=== PATIENT | male | born 1960 | race Caucasian/White ===

== ENCOUNTER 2016-07-14 10:27 | Day surgery (SDC) | payer OTHER ==
[2016-07-14] VITALS (8 sets, daily range): BP systolic 99–139; BP diastolic 63–92; PULSE 66–75; RESP 6–17; O2SAT 94–99
[~2016-07-14] VITALS: Ht 182.9 cm; Wt 75.5 kg
--- NOTE | 2016-07-14 10:11 | PCM.HPANE ---
Patient Data Date of Service: July 14, 2016 Surgeon Admitting Provider: Attending Provider:Chinyere Jordan MD Primary Care Physician:Karla Al MD Other Provider:Katherine Corcoran Anesthesia Reason for Visit Right Inguinal Hernia Ht/WT & BMI Height (Feet): 6 Height (Inches): 0 Weight (Kilograms): 78.698 Body Mass Index 23.00 Allergies Coded Allergies: No Known Allergies (Verified , 07/13/16) Past Anesthesia History Anesthesia History: Denies:: Anesthesia Reactions, Malignant Hyperthermia Diabetes History Hx Diabetes?: No MRSA MRSA: No Medications Hypertension Medication: No Home Meds Incl Beta Claudia: No Reported Medications Acetaminophen/Codeine 300-30mg (Tylenol/Codeine #3)1 Each Tablet1 Tablet PO Q4H PRN Pain Ref 0 07/14/16 Multivitamin (Once Daily)1 Each Tablet1 Each PO DAILY 07/14/16 Zolpidem (Ambien)5 Mg Tablet5 Mg PO HS PRN For Insomnia Ref 0 07/13/16 oxyCODONE-Acetaminophen 5-325 mg 1 Each Tablet1 Tab PO Q6H PRN For Pain Ref 0 07/13/16 Gabapentin 600 Mg [id number] Mg PO DAILY Ref 0 07/13/16 Discontinued Reported Medications Cholecalciferol (Vitamin D3) (Vitamin D)1,000 Unit Capsule1,000 Unit PO DAILY # 1 BOTTLE Ref 0 07/13/16 Methocarbamol 500 Mg [id number] Mg PO QID 07/13/16 IBUPROFEN-Expunged Drug, Do Not Renew! 800 Mg [id number] Mg PO AM 01/16/10 Cyclobenzaprine-Expunged Drug, Do Not Renew! (Flexeril-Expunged Drug, Do Not Renew!)10 Mg [id number] Mg PO HS 01/16/10 Gabapentin-Expunged Drug, Do Not Renew! (Neurontin-Expunged Drug, Do Not Renew!) 300 Mg [id number] Mg PO HS 01/16/10 Oxycodone/APAP-Expunged Drug, Do Not Renew! (Percocet 5/325-Expunged Drug, Do Not Renew!)1 Each Tablet5-325 Mg PO HS Ref 0 02/15 tab 06/26/08 History History of ENT Problems?: Yes HEENT History: Positive for:: Sinus Problem (S/P SINUS SURGERY) Denies:: Abnormal Airway Cataracts Difficult Intubation Dysphagia Glaucoma Hearing Problem TMJ Denture Type: None Teeth Condition: Within Normal Limits Other HEENT Pertinent History: S/P TONSILLECTOMY Hx of Heart Problems?: No Cardiovascular History: Positive for:: Heart Murmur (REPORTED IN OLD RECORD- NOT NOTED ON EXAM BY SURGEON) Denies:: Hypertension Hx of Respiratory Problem?: Yes Respiratory History: Positive for:: Use of C-PAP Machine (MOIRA+ ?CPAP) Hx Neurologic Problems?: Yes Hx of GI Problems?: Yes Other GI Pertinent History: HX IBS, SMALL LT INGUINAL HERNIA RT INGUINAL HERNIA=CURRENT PROBLEM Hx of Problems?: No Male Hx: Positive for:: Testicular Surgery (S/P VASECTOMY) Denies:: Prostate Problems Scrotal Mass Skin History: Denies:: History Skin Disorders? Pressure Ulcers Hx Musculoskeletal Problems?: Yes Musculoskeletal History: Positive for:: Musculoskeletal Trauma (S/P RT WRIST LAC RPR,HAND RPR,ORIF RT 4TH MC FX,B/L BUNIONECTOMY) Denies:: Back Injury (C/OF LOWER BACK PAIN) Hx of Psycho/Social Problems?: No Hx Surgeries?: Yes (MULT ANAQL PROC.,ORIF 5TH MC FX,B/L BUNIONS,TONSILS,HAND RPR,VASECTOMY,SINU) Hx Any Other Health Problems?: Yes Other History: Positive for:: Hospitalization Denies:: Cancer Endocrine Disease Thyroid Disease Hx Diabetes: No Hx Alcohol Use: YesAlcoholic Drinks Per Day: 1/WEEKHave You Smoked inLast 12 mo: No Stop/Bang Treated for Sleep Apnea?: No Do You Have a CPAP Machine?: No S-Snoring: Do You Snore Loudly: No T-Tired: feel tired, fatigued: Yes O-Obsered: Observed not breath: No P-Blood Pressure: treated: No B- Body Mass Index > 35 kg/m2: No A- Age over 50: Yes N- Neck Large Circumference: No G- Gender Male: Yes MOIRA Total Score: 3 MOIRA Risk Assessment: Low Risk, <3 Yes Risk Assessment Category Category 1A: Patient has history of documented sleep apnea, and HAS NOT received any narcotic, sedative or anesthesia administration during this stay. Category 1B: Patient has history of documented sleep apnea, and HAS received any narcotic , sedative or anesthesia administration during this stay Category 2: Patient has SUSPECTED Obstructive Sleep Apnea, and HAS received any narcotic , sedative or anesthesia administration during this stay. Category 3: Patient has SUSPECTED Obstructive Sleep Apnea and HAS NOT received narcotic, sedative or anesthesia administration during this stay. Category 4: Outpatient in Procedural Areas with known sleep apnea or who screen positive for High Risk via the STOP/BANG questionnaire. Exam Exam General Appearance: Alert, Oriented X3, Cooperative, No Acute Distress HEENT/AIRWAY: MP 2 Lungs: Clear to Auscultation, Normal Air Movement Heart: Exam Unremarkable, Regular Rate/Rhythm, Normal S1, Normal S2 Plan Impression Patient chart reviewed, patient interviewed and anesthestic plan with risks, benefits, and alternatives discussed, and informed consent obtained. NPO per Anesth. Guidelines: Yes ASA Physical Status: ASA2 Mod Systemic Disease Anesthetic Plan: GA Bene/Risks/Altern/Consents: Yes HP Complete Prior to Induction: Yes Konrad Sutherland MD July 14, 2016 10:11
[~2016-07-14 10:27] MED LIST: CHOL100045 PO; CeFAZolin Inj 2,000 MG in Dextrose 5%-Pha MIX 50 ML IV SCH; GABA600T2 PO; OXYC1TAB24 PO; ROB500 PO; ZLP5T PO
[2016-07-14] MEDS ORDERED: Propofol 10,000 mCg/mL 20 mL Inj ONE (10:28)
[2016-07-14] MEDS ORDERED: Ondansetron 2 mg/mL 2 mL Inj ONE (10:28)
[2016-07-14] MEDS ORDERED: fentaNYL-PF 50 mCg/mL 2 mL Inj ONE (10:28)
[2016-07-14] MEDS ORDERED: Dexamethasone 4 mg/mL Inj ONE (10:28)
[2016-07-14] MEDS: Lactated Ringer's 1,000 ML IV SCH ×2 (10:36→13:07)
[2016-07-14] MEDS ORDERED: CeFAZolin Inj 2 gm / 50mL D5W IV ONE (10:39)
[2016-07-14] MEDS ORDERED: MULT-666 PO (10:40)
[2016-07-14] MEDS ORDERED: ACET1TAB12 PO (10:40)
[2016-07-14] MEDS ORDERED: Labetalol 5 mg/mL 4 mL Inj IV PRN (13:20)
[2016-07-14] MEDS ORDERED: fentaNYL-PF 50 mCg/mL 2 mL Inj IVPUSH PRN (13:20)
[2016-07-14] MEDS ORDERED: Phenylephrine 10,000 mCg/mL Inj IVPUSH PRN (13:20)
[2016-07-14] MEDS ORDERED: Lactated Ringer's 500 ML IV PRN (13:20)
[2016-07-14] MEDS ORDERED: Lactated Ringer's 1,000 ML IV SCH (13:20)
[2016-07-14] MEDS ORDERED: Ondansetron 2 mg/mL 2 mL Inj IVPUSH PRN (13:20)
[2016-07-14] MEDS ORDERED: EPHEDrine Sulfate 50 mg/mL Inj IVPUSH PRN (13:20)
[2016-07-14] MEDS ORDERED: Dexamethasone 4 mg/mL Inj IVPUSH PRN (13:20)
[2016-07-14] MEDS ORDERED: HYDROmorphone 1 mg/mL Inj IVPUSH PRN (13:20)
[2016-07-14] MEDS ORDERED: Bupivacaine-MPF 0.5% 30 mL Inj INFILTRATE ONE (13:38)
[2016-07-14] MEDS ORDERED: oxyCODONE-Acetamin 5-325 mg Tablet PO PRN (14:40)
--- NOTE | 2016-07-14 15:00 | PCM.SURGOP ---
Surgical Operative Report Date of Service: July 14, 2016 Pre Operative Diagnosis Direct right inguinal hernia Post Operative Diagnosis Direct right inguinal herni Procedure: Open right inguinal hernia repair with mesh Surgeon and Supervisor Modern Languages: Surgeon: Chinyere Jordan MD Assistants: Sanchez Montes PA-C, Norma Bowser MS3 A surgical product sales consultant was necessary for dissection and retraction Indication for Procedure This is a 56-year-old man who presented with a painful right groin bulge. A CT scan was performed confirming a direct right inguinal hernia. It contains a loop of bowel. On CT, he also had a small fat-containing left inguinal hernia, however, this was completely asymptomatic. Therefore he was consented to primary unilateral repair on the right. Findings: Moderate direct inguinal hernia containing intra-abdominal fat at the time of the operation. There were no herniated viscera at the time of surgery. Procedure Details The patient was brought to the operating room and placed in supine position. General anesthesia was smoothly induced. A warming blanket and SCDs were placed. Antibiotics were infused. The operative field was prepped and draped in sterile fashion. A pause was performed to confirm the correct patient, procedure, site, and side. An oblique incision was made between the ASIS and pubic tubercle. Subcutaneous tissue was dissected with electrocautery. The external oblique was incised sharply and divided with Metzenbaum scissors. The spermatic cord was identified, dissected free of surrounding tissues, and surrounded with a Emden drain for retraction. The iliohypogastric nerve was identified and divided high. The cord and floor were carefully inspected, and he was found to have a moderately large direct inguinal hernia defect with intra-abdominal herniated fat. There was no indirect sac or cord lipoma. The direct defect was then plicated by using interrupted 3-0 PDS to reapproximate the rectus fascia medially to the iliopubic tract laterally. There was no hernia defect at the completion of this region of the procedure. This assisted with keeping the intra-abdominal fat reduced during this placement. Attention was then turned to mesh placement. A piece of 3 inch by 6 inch ultralight Bard Softmesh was fashioned to size with care taken to provide adequate coverage of the floor , and adequate overlap at the pubic tubercle. Interrupted 3-0 PDS stitches were then used to suture it into place. The first stitch was placed in the tissue overlying the pubic tubercle with greater than 1 cm of overlap to prevent recurrence. Additional stitches were then used at 1.5 cm intervals to suture the lateral aspect of the mesh to the shelving edge of the inguinal ligament. Several stitches were then placed medially to affix the mesh to the conjoined tendon. At the end of the case, the floor was covered with mesh. Two tails were fashioned to recreate the internal ring. These were sutured to each other and to the shelving edge of the inguinal ligament. The new ring was large enough to pass the cord and the tip of the surgeon's fifth digit. The Emden drain was removed and the external oblique was then closed with a running 3-0 Vicryl stitch. Subcutaneous tissue was closed with 3-0 Vicryl stitches. The skin was closed with a running 4-0 Monocryl stitch. Marcaine 0.5% with epinephrine was infused in the skin for postoperative analgesia. A sterile dressing was placed. The patient was awakened from general anesthesia and taken to postoperative care unit in good condition. Complications There were no periprocedural complications identified. Surgical Specimen Removed: No Specimen sent to Pathology: No Anesthetic Plan: GA Grafts, Implants: Implants-See Implant Record Output, Estimated Blood Loss: 2 (ml) Blood Administration during cantu: No Chinyere Jordan MD July 14, 2016 15:00
--- NOTE | 2016-07-14 15:43 | PCM.ANEP1 ---
Post Anesthesia PACU Phase 1 Assessment Vital Signs Vital Signs Date Time Temp Pulse Resp B/P Pulse Ox O2 Delivery O2 Flow Rate FiO2 07/14/16 15:17 36.3 69 12 126/88 98 Room Air 07/14/16 15:12 75 12 126/78 97 Room Air 07/14/16 15:05 74 6 116/75 98 Room Air 07/14/16 15:02 67 9 118/72 94 Room Air 07/14/16 14:55 68 12 112/66 95 Room Air 07/14/16 14:48 36.1 69 14 99/63 95 Room Air 07/14/16 10:45 36.0 69 17 139/92 97 Room Air Anesthetic Administered: GA Level of Alertness: Sleepy, easy to arouse DUNLAP's with Equal Strength: Yes Pain: No Nausea or Vomiting: No CV Function & Hydration Stable: Yes Airway Device: Oralpharangeal Airway Lungs: Clear to Auscultation, Normal Air Movement Dermatome Level: Full Sensation PACU Phase 2 Assessment Complications: No Follow up Care: No Patient Instructions Provided: N/A Konrad Sutherland MD July 14, 2016 15:43
== END 2016-07-14 23:59 | disposition home or self-care (01) ==
LOC: SAS 10:27
PROVIDERS: ATTEND Surgery
DX: K40.90 Unilateral inguinal hernia, without obstruction or gangrene, not specified as recurrent (principal); G47.00 Insomnia, unspecified; G47.33 Obstructive sleep apnea (adult) (pediatric); K58.9 Irritable bowel syndrome, unspecified; R01.1 Cardiac murmur, unspecified; E55.9 Vitamin D deficiency, unspecified
CPT/HCPCS: 49505; C1781; J0690; J1100; J1885; J2250; J2405; J3010; J7120